=== PATIENT | female | born 1995 | race Caucasian/White ===

== ENCOUNTER 2018-05-28 21:56 | Emergency (ER) | payer MEDICAID, OTHER ==
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
[2018-05-29 02:34] LABS: T.VAGINALIS (WET MOUNT) NO TRICHOMONAS SEEN; WBCS (WET MOUNT) FEW WBCS SEEN; YEAST (WET MOUNT) NO YEAST SEEN
[2018-05-29 02:56] VITALS: BP 115/76
[2018-05-29] MEDS ORDERED: EMTRICITABINE/TENOFOVIR 200-300 MG TAB (3 TAB/ER DISP) PO PRN (03:51)
[2018-05-29] MEDS ORDERED: EMTRICITABINE/TENOFOVIR 200-300 MG TABLET PO ONE (03:51)
[2018-05-29 03:58] LABS: CHLAM PCR NOT DETECTED (NOT DETECT); GON PCR NOT DETECTED (NOT DETECT)
[2018-05-29] MEDS ORDERED: LEVONORGESTREL 1.5 MG TABLET (1 TAB/ER-USE) PO ONE (04:04)
== END 2018-05-29 04:08 | disposition home or self-care (01) ==
LOC: ER 21:56
DX: T74.21XA Adult sexual abuse, confirmed, initial encounter (principal); Y07.59 Other non-family member, perpetrator of maltreatment and neglect; R41.3 Other amnesia; Z97.5 Presence of (intrauterine) contraceptive device
CPT/HCPCS: 99285; 36415; 87210; 81025; 86592; 86701; 87491; 87591; A9270